=== PATIENT | male | born 1960 | race Two or more races ===

== ENCOUNTER 2017-10-08 19:43 | Emergency (ER) | payer MEDICAID, OTHER ==
[~2017-10-08] VITALS: Ht 167.6 cm; Wt 72.6 kg
[2017-10-08 20:05] VITALS: BP 132/83
== END 2017-10-08 22:03 | disposition home or self-care (01) ==
LOC: ER 19:43
DX: S93.402A Sprain of unspecified ligament of left ankle, initial encounter (principal); W19.XXXA Unspecified fall, initial encounter; Y93.89 Activity, other specified; Y99.8 Other external cause status; Y92.89 Other specified places as the place of occurrence of the external cause
CPT/HCPCS: 73610; 73630

== ENCOUNTER 2018-07-13 07:05 | Emergency (ER) | payer OTHER ==
[~2018-07-13] VITALS: Ht 167.6 cm; Wt 72.6 kg
[2018-07-13 07:44] VITALS: BP 164/92
== END 2018-07-13 07:51 | disposition home or self-care (01) ==
LOC: ER 07:05
DX: M75.91 Shoulder lesion, unspecified, right shoulder (principal)
CPT/HCPCS: 73030

== ENCOUNTER 2018-11-05 09:25 | Emergency (ER) | payer OTHER ==
[~2018-11-05] VITALS: Ht 167.6 cm; Wt 72.6 kg
[2018-11-05] MEDS ORDERED: SODIUM CHLORIDE 0.9% 1,000 ML IV ONE (10:11)
[2018-11-05] MEDS ORDERED: ONDANSETRON HCL 4 MG/2 ML VIAL IV ONE (10:15)
[2018-11-05] MEDS ORDERED: KETOROLAC TROMETH 15 mg/ml 1ML VL IV ONE (10:15)
[2018-11-05 10:28] LABS: Basophils # (auto) 0 uL; Basophils % (auto) 0.4 % (0.0-2.0); Eosinophils # (auto) 0.1 uL; Eosinophils % (auto) 1.3 % (0.0-7.0); Hematocrit 46.8 % (41.0-53.0); Hemoglobin 15.4 g/dL (13.5-17.5); Lymphocytes # (auto) 1.3 uL; Lymphocytes % (auto) 14.3 % (10.0-50.0); Mean Corpuscular Hemoglobin 30.4 pg (28.0-32.0); Mean Corpuscular Hgb Conc. 32.8 g/dL (32.0-36.0); Mean Corpuscular Volume 92.5 fL (80.0-100.0); Monocytes # (auto) 0.5 uL; Neutrophils # (auto) 7.3 uL; Platelet Count (auto) 237 10^3/uL (140-450); Red Blood Cells 5.06 10^6/uL (4.5-5.90); Red Cell Distribution Width 13.9 % (11.8-14.3); White Blood Cell 9.2 10^3/uL (4.4-10.8)
[2018-11-05 10:33] LABS: Urine Bacteria NONE SEEN /hpf (None Seen); Urine Blood TRACE /uL (Negative); Urine Mucus FEW (None Seen); Urine Specific Gravity 1.021 (1.001-1.035); Urine WBC 2 /hpf (0 - 3)
[2018-11-05] MEDS ORDERED: KETOROLAC TROMETH 30 MG/ML 1ML VIAL ONE (10:37)
[2018-11-05 10:45] LABS: Albumin 3.9 g/dL (3.4-5.0); BUN/Creatinine Ratio 17.9; Calcium 8.4 mg/dL (8.5-10.1); Potassium 3.4 mmol/L (3.5-5.1)
[2018-11-05 10:47] LABS: Bilirubin, Total 0.4 mg/dL (0.2-1.0); Total Protein 7.4 g/dL (6.4-8.2)
[2018-11-05 12:24] VITALS: BP 109/88
== END 2018-11-05 13:36 | disposition home or self-care (01) ==
LOC: ER 09:25
DX: N20.0 Calculus of kidney (principal)
CPT/HCPCS: 36415; 74176; 80053; 81001; 85025; 93005; 96374; 96375; 99284; J1885; J2405; J7030

== ENCOUNTER 2019-04-28 20:38 | Emergency (ER) | payer OTHER ==
[~2019-04-28] VITALS: Ht 193 cm; Wt 72.6 kg
[2019-04-28 20:57] VITALS: BP 146/92
[2019-04-28] MEDS ORDERED: cefTRIAXone SOD 1,000 MG VL IM ONE (23:30)
[2019-04-28] MEDS ORDERED: DexAMETHasone SOD PHOS 10MG/1ML VIAL INJ IM ONE (23:30)
[2019-04-28] MEDS ORDERED: LIDOCAINE 1% HCL (LOCAL ANESTH.) INJ 20ML MDV ONE (23:48)
[2019-04-29] MEDS ORDERED: LIDOCAINE 1% HCL (LOCAL ANESTH.) INJ 20ML MDV ID ONE
== END 2019-04-29 00:16 | disposition home or self-care (01) ==
LOC: ER 20:38
DX: L73.9 Follicular disorder, unspecified (principal); L02.01 Cutaneous abscess of face
CPT/HCPCS: 10060; 96372; 99283; J0696; J1100; J2001

== ENCOUNTER 2020-02-09 12:07 | Emergency (ER) | payer OTHER ==
[~2020-02-09] VITALS: Ht 167.6 cm; Wt 72.6 kg
[2020-02-09 12:24] VITALS: BP 145/100
[2020-02-09] MEDS ORDERED: KETOROLAC TROMETH 60MG/2ML VIAL IM ONE (14:45)
[2020-02-09] MEDS ORDERED: IBUPROFEN 800 MG TAB PO ONE (14:45)
== END 2020-02-09 14:55 | disposition home or self-care (01) ==
LOC: ER 12:07
DX: S22.41XA Multiple fractures of ribs, right side, initial encounter for closed fracture (principal); V13.4XXA Pedal cycle driver injured in collision with car, pick-up truck or van in traffic accident, initial encounter; Y93.89 Activity, other specified; Y92.89 Other specified places as the place of occurrence of the external cause; Y99.8 Other external cause status
CPT/HCPCS: 71046; 71250; J1885

== ENCOUNTER 2020-06-18 21:18 | Emergency (ER) | payer OTHER ==
[~2020-06-18] VITALS: Ht 170.2 cm; Wt 72.6 kg
== END 2020-06-18 22:03 | disposition left against medical advice (07) ==
LOC: ER 21:18
DX: F10.920 Alcohol use, unspecified with intoxication, uncomplicated (principal); V49.9XXA Car occupant (driver) (passenger) injured in unspecified traffic accident, initial encounter; Y93.89 Activity, other specified; Y92.89 Other specified places as the place of occurrence of the external cause; Y99.8 Other external cause status